=== PATIENT | male | born 1990 | race Two or more races ===

== ENCOUNTER 2016-10-16 15:57 | Emergency (ER) | payer MEDICAID, OTHER ==
[2016-10-16 16:50] VITALS: BP 146/71; PULSE 96; RESP 16; TEMP 98.4; O2SAT 96
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
== END 2016-10-16 17:29 | disposition home or self-care (01) ==
LOC: CED 15:57
DX: S00.03XA Contusion of scalp, initial encounter (principal); Y04.0XXA Assault by unarmed brawl or fight, initial encounter; Y92.39 Other specified sports and athletic area as the place of occurrence of the external cause; Y99.8 Other external cause status; Y93.89 Activity, other specified
CPT/HCPCS: 70450-PO; G0463-PO

== ENCOUNTER 2018-12-10 17:00 | Emergency (ER) | payer MEDICAID, OTHER ==
[2018-12-10 17:09] VITALS: BP 125/79
--- NOTE | 2018-12-10 17:18 | EDPHY ---
H & P Stated Complaint: eyes red and ittitated post playing with a cat today Time Seen by Provider: 12/10/18 17:14 HPI/ROS: HPI: This is a 28-year-old male who presents with Chief Complaint: eyes red and irritated status post playing with a cat today Location: Left eye Quality: Redness and itchiness Duration: 1 hr prior to arrival Signs and Symptoms: no fever, no nausea, no vomiting, no photophobia, no noise sensitivity, no neck stiffness, no ear pain, no tinnitus, no nasal congestion, no sinus pressure, no weakness, no radiation, no aura Timing: Acute, improving Severity: Mild Context: Patient reports that he was playing with a cat and petting it's fur 2 hr prior to arrival to the emergency room. 1 hour ago, he started to experience left eye itchiness and sneezing. He reports that he started to rubbed his left eye due to the itchiness and it turned red. He voided rubbing his eye for approximately 30 min and the redness has resolved. He complains of sneezing and continued left eye itchiness. Denies any vision changes, ocular discharge, vision loss, facial swelling, skin color changes. Reports tetanus is up-to-date. No history of allergies in the past. Does not wear contact lenses/corrective lenses. Denies foreign body sensation. Modifying Factors: None Comment: ROS: A comprehensive 10 system review of systems is otherwise negative aside from elements mentioned in the history of present illness. MEDICAL/SURGICAL/SOCIAL HISTORY: Medical history: Generally healthy. Does not take any regular medications. Surgical history: Denies Social history: Never smoked. Family history noncontributory. General appearance: adult male, awake and alert, nontoxic in appearance, polite Visual Acuity: noted from Nurse's notes. Pupils: equal round and reactive to light. EOMI Lids: no edema or swelling Skin: no proptosis, no periorbital erythema or swelling, no vesicles Conjunctivae: left mildly injected, no discharge. Source: Patient Exam Limitations: No limitations - Personal History Current Tetanus Diphtheria and Acellular Pertussis (TDAP): Yes Tetanus Vaccine Date: 2009 - Medical/Surgical History Hx Asthma: Yes Hx Chronic Respiratory Disease: No Hx Diabetes: No Hx Cardiac Disease: No Hx Renal Disease: No Hx Cirrhosis: No Hx Alcoholism: No Hx HIV/AIDS: No Hx Splenectomy or Spleen Trauma: No Other PMH: PCP [facility]. Surgery Head. knee. tetanus utd. FLu NONE - Social History Smoking Status: Never smoked Constitutional: Initial Vital Signs Temperature (C) 36.7 C 12/10/18 17:06 Heart Rate 65 12/10/18 17:06 Respiratory Rate 16 12/10/18 17:06 Blood Pressure 125/79 H 12/10/18 17:06 O2 Sat (%) 97 12/10/18 17:06 O2 Delivery Mode Room Air Allergies/Adverse Reactions: No Known Allergies Allergy (Verified 12/10/18 17:06) Home Medications: Medication Instructions Recorded Albuterol 10/16/16 Olopatadine 0.1% [Patanol 0.1% 1 drop EACHEYE BID 5 Days #1 12/10/18 Opht Drop (RX)] opht.btl Medical Decision Making ED Course/Re-evaluation: Patient has no signs of periorbital cellulitis Suspect this is allergy/irritant related. Patient politely declined Benadryl in the emergency room as "I have things to do." Patient prefers to take [id number] antihistamines, Benadryl p.r.n. I did give him a prescription for Patanol eye drops Ophthalmology referral as needed This patient was seen under the supervision of my secondary supervising physician. I evaluated and cared for this patient independently. Differential Diagnosis: Differential diagnosis includes but is not limited to allergic reaction, bacterial conjunctivitis, allergic conjunctivitis, viral conjunctivitis, corneal abrasion, uveitis, iritis, sinusitis. Departure - Departure Disposition: Home, Routine, Self-Care Clinical Impression: Allergic conjunctivitis Qualifiers: Laterality: left Qualified Code(s): H10.12 - Acute atopic conjunctivitis, left eye Condition: Good Instructions: Allergies (ED), Allergy Testing (ED), Conjunctivitis (ED) Additional Instructions: Apply Patanol 1 drop every 12 hr while awake x3 days for as needed for ocular itching. Please avoid using your hands to touch your eyes. Wash your hands frequently with mild soap and water. Apply cool compresses for 15-20 minutes at a time several times per day for the next 1-2 days. Take [id number] antihistamine like Claritin/May/Zyrtec daily as needed for allergies. Take Benadryl 25-50 mg every 4-6 hours as needed for itching, allergic reaction. Eye Complaint: Return to the Emergency Department for any increase in eye pain, redness, swelling, discharge or any worsening of your vision. Referrals: Sukhdev Le MD [Medical Doctor] - As per Instructions Prescriptions: Olopatadine 0.1% [Patanol 0.1% Opht Drop (RX)] 1 drop EACHEYE BID 5 Days #1 opht.btl
== END 2018-12-10 17:53 | disposition home or self-care (01) ==
DX: H10.12 Acute atopic conjunctivitis, left eye (principal)